=== PATIENT | male | born 1970 | race Caucasian/White ===

== ENCOUNTER 2017-01-18 21:43 | Outpatient (CLI) ==
[2013-03-05 11:37] VITALS: BMI 24.0
== END 2017-01-18 21:44 | disposition short-term general hospital (02) ==
LOC: AMBL 21:43
PROVIDERS: ATTEND Family Medicine
DX: S06.9X1A Unspecified intracranial injury with loss of consciousness of 30 minutes or less, initial encounter (principal); S01.112A Laceration without foreign body of left eyelid and periocular area, initial encounter; S29.9XXA Unspecified injury of thorax, initial encounter; Y08.02XA Assault by strike by baseball bat, initial encounter

== ENCOUNTER 2017-06-29 19:50 | Emergency (ER) ==
[2017-06-29 20:01] VITALS: BP 134/70; TEMP 98.6; BMI 20.2
--- NOTE | 2017-06-29 20:36 | CT ---
EXAM: CT lumbar spine without contrast HISTORY: Low back pain COMPARISON: None TECHNIQUE: CT lumbar spine performed without intravenous contrast. Coronal and sagittal reformatted images obtained. FINDINGS: Vertebral bodies normal height. No fracture. Mild multilevel intervertebral disc is narr owing. Multilevel marginal osteophyte formation. Trace retrolisthesis L3 on L4 and L4 on L5. Sacro iliac joints intact with mild degenerative change. Aorta normal in caliber. Moderate to severe athe rosclerosis. T12-L1: No central canal or neural foraminal narrowing. L1-L2: No central canal or neural foraminal narrowing. L2-L3: No central canal or neural foraminal narrowing. L3-L4: Posterior disc osteophyte complex and facet arthrosis causing mild central canal and mild matthias ateral neural foraminal narrowing. L4-L5: Posterior disc osteophyte complex and facet arthrosis causing moderate central canal and mode rate bilateral neural foraminal narrowing. L5-S1: Posterior disc osteophyte complex and facet arthrosis causing mild bilateral neural foraminal narrowing IMPRESSION: 1. No fracture. 2. Chronic discogenic degenerative disease and facet arthrosis. Please see segmental analysis, noti ng central canal and neural foraminal narrowing. 3. Moderate to severe atherosclerosis
--- NOTE | 2017-06-29 20:41 | ED.PDOC ---
General ED Provider: Dr. AARTI BARRETT-ER Chief Complaint: Back Pain Stated Complaint: i fell out of bed this am and my lower back hurts Time Seen by Physician: 19:55 Mode of Arrival: Walk-In Information Source: Patient Exam Limitations: No limitations Primary Care Provider: ROSIE ADAMS Nursing and Triage Documentation Reviewed and Agree: Yes Musculoskeletal Complaint Exam - Back Pain Complaint/Exam Mechanism of Injury: Reports: Trauma Onset/Duration: several hours Symptoms Are: Still present Timing: Constant Episodes Lasting: Hours Initial Severity: Mild Current Severity: Mild Location: Reports: Discrete (lumbar spine) Character: Reports: Dull, Aching Aggravating: Reports: Movements, Lifting, Bending, Walking Alleviating: Reports: None Associated Signs and Symptoms: Denies: Swelling, Redness, Bruising, Fever, Weakness, Numbness, Tingling, Abdominal pain, Flank pain, Bladder incontinence, Bowel incontinence, Weight loss, Pain with weight bearing Focal Tenderness: Yes Paraspinal Muscle Tenderness: Yes Paraspinal Muscle Spasm: No Scoliosis: No Lordosis: No Kyphosis: No SLR Test: Right Negative, Left Negative Hip Motion Testing Pain: Right Negative, Left Negative Focal Weakness: Present: None Focal Sensory Loss: Present: None Gait: Present: Abnormal Differential Diagnoses: Arthritis Review of Systems - Review Of Systems Constitutional: Reports: No symptoms Eyes: Reports: No symptoms Ears, Nose, Mouth, Throat: Reports: No symptoms Respiratory: Reports: No symptoms Cardiac: Reports: No symptoms GI: Reports: No symptoms : Reports: No symptoms Musculoskeletal: Reports: Back pain Skin: Reports: No symptoms Neurological: Reports: No symptoms Endocrine: Reports: No symptoms Hematologic/Lymphatic: Reports: No symptoms All Other Systems: Reviewed and Negative Past Medical History - Past Medical History Previously Healthy: Yes Endocrine: Reports: Unknown Cardiovascular: Reports: Unknown Respiratory: Reports: Unknown Hematological: Reports: Unknown Gastrointestinal: Reports: Unknown Genitourinary: Reports: Unknown Neuro/Psych: Reports: Unknown Musculoskeletal: Reports: Unknown Cancer: Reports: Unknown - Surgical History General Surgical History: Reports: Unknown - Family History Family History: Reports: Unknown - Social History Smoking Status: Current every day smoker, Light tobacco smoker Hx Substance Use: Yes (PAST) Alcohol Screening: None Lives: With family - Immunizations Tetanus Shot up to Date: Yes Physical Exam - Physical Exam Appearance: Well-appearing, No pain distress, Well-nourished Pain Distress: Mild Eyes: ROBYN, EOMI, Conjunctiva clear ENT: Ears normal, Nose normal, Oropharynx normal Neck: Supple Respiratory: Airway patent, Breath sounds clear, Breath sounds equal, Respirations nonlabored Cardiovascular: RRR, Pulses normal, No rub, No murmur GI/: Soft, Nontender, No masses, Bowel sounds normal, No Organomegaly Musculoskeletal: Limited ROM Skin: Warm, Dry, Normal color Neurological: Sensation intact, Motor intact, Reflexes intact, Cranial nerves intact, Alert, Oriented Psychiatric: Affect appropriate, Mood appropriate Interpretation - Radiology Interpretation Radiology Interpretation By: Radiologist Radiology Results: Positive ("deg disc dz and facet arthrosis") Exam Interpreted: CT Scan Critical Care Note - Critical Care Note Total Time (mins): 0 Course - Course Orders, Labs, Meds: Orders Category Date Time Status CT LUMBAR SPINE W/O CONTRAST Stat RADS 06/29/17 20:05 Completed Vital Signs: Temp Pulse Resp BP Pulse Ox 06/29/17 19:50 98.6 F 107 H 20 134/70 98 Departure - Departure Time of Disposition: 20:41 Disposition: HOME SELF-CARE Discharge Problem: Backache Instructions: Back Pain (ED) Condition: Good Pt referred to PMD for follow-up: Yes Additional Instructions: you declined pain meds tonight--f/u with your pcp next week Allergies/Adverse Reactions: Allergies No Known Allergies Allergy (Verified 06/29/17 20:01) Home Medications: Ambulatory Orders Phenytoin Cap [Dilantin] 300 mg PO BID 03/05/13 Buspirone HCl 5 mg PO BID 06/29/17 Clonazepam [Klonopin] 1 mg PO BID PRN 06/29/17 Gabapentin 100 mg PO TID PRN 06/29/17 Disposition Discussed With: Patient
== END 2017-06-29 20:49 | disposition home or self-care (01) ==
LOC: ED 19:50
DX: M54.5 Low back pain (principal); W06.XXXA Fall from bed, initial encounter; F17.210 Nicotine dependence, cigarettes, uncomplicated
CPT/HCPCS: 99282